=== PATIENT | male | born 1990 | race Caucasian/White ===

== ENCOUNTER 2017-05-03 12:32 | Emergency (ER) | payer OTHER ==
[~2017-05-03] VITALS: Ht 185.4 cm; Wt 60.8 kg
--- NOTE | 2017-05-03 12:37 | NUR ---
[id number]/[employer]: OK TO BOOK. TACHYCARDIA S/P SMOKING METH LAST NIGHT. GOWNED PT . PLACED ON MONITOR. AWAITING MD ORDER
--- NOTE | 2017-05-03 12:39 | NUR ---
DR BISHOP AT BEDSIDE FOR EVAL.
[2017-05-03] MEDS ORDERED: HALOPERIDOL LACTATE INJ 5 MG/ML VIAL ONE (12:43)
[2017-05-03] MEDS ORDERED: LORAZEPAM INJ 2 MG/ML VIAL ONE (12:44)
[2017-05-03] MEDS: IV NS 0.9% 1,000 ML BAG IV ONE (12:50)
[2017-05-03] MEDS: LORAZEPAM INJ 2 MG/ML VIAL IVP ONE (12:51)
[2017-05-03] MEDS: HALOPERIDOL LACTATE INJ 5 MG/ML VIAL IM ONE (12:53)
--- NOTE | 2017-05-03 12:55 | NUR ---
COMMERCIAL [employer] PORTFOLIO MANAGER AT BEDSIDE FOR BLOOD DRAW.
[2017-05-03 13:06] LABS: BASOPHILS # (AUTO) 0.5 /CMM (0.0-0.2); BASOPHILS % (AUTO) 4.9 % (0.0-2.0); HEMATOCRIT 44 % (39-51); HEMOGLOBIN 14.9 g/dL (13.5-17.5); LYMPHOCYTES # (AUTO) 2.9 /CMM (0.8-4.8); LYMPHOCYTES % (AUTO) 26.1 % (20.0-44.0); MEAN CORPUSCULAR HEMOGLOBIN 31 PG (26.0-33.0); MEAN CORPUSCULAR HGB CONC 34 g/dl (31.0-36.0); MEAN CORPUSCULAR VOLUME 93 fL (80-96); MONOCYTES # (AUTO) 0.6 /CMM (0.1-1.30); MONOCYTES % (AUTO) 5.9 % (2.0-12.0); NEUTROPHILS # (AUTO) 6.9 /CMM (1.8-8.9); NEUTROPHILS % (AUTO) 63.1 % (43.0-81.0); PLATELET COUNT (AUTO) 354 /CMM (150-450); RDW COEFFICIENT OF VARIATION 13.6 (11.5-15.0); RED BLOOD CELL COUNT(AUTO) 4.79 MIL/uL (4.5-6.0); WHITE BLOOD COUNT (AUTO) 10.9 K/uL (4.3-11.0)
[2017-05-03 13:07] LABS: APPEARANCE,URINE Slightly Cloudy (CLEAR); BILIRUBIN,URINE SMALL (NEGATIVE); BLOOD, URINE Negative Ery/uL (NEGATIVE); COLOR,URINE Yellow (YELLOW); KETONES,URINE 40 (NEGATIVE); LEUKOCYTE ESTERASE ,URINE Negative (NEGATIVE); NITRITE, URINE Negative (NEGATIVE); PROTEIN,URINE 30 mg/dl (NEGATIVE); UGLUCOSE Negative (NEGATIVE); UROBILINOGEN,URINE 0.2 EU/dL (0.2)
[2017-05-03 13:13] LABS: CARBON DIOXIDE 25 mmol/L (21-32); CHLORIDE 107 mmol/L (98-107); CREATININE 1.1 mg/dL (0.6-1.3); GLUCOSE 82 mg/dL (74-106); POTASSIUM 3.6 mmol/L (3.5-5.1); SODIUM SERUM 145 mmol/L (136-145); UREA NITROGEN, BLOOD 20 mg/dL (7-18)
[2017-05-03 13:19] LABS: ALANINE AMINOTRANSFERASE 32 U/L (12-78); ALBUMIN 4.5 g/dL (3.4-5.0); ALCOHOL, BLOOD < 3 mg/dL (0-0); ALKALINE PHOSPHATASE 68 U/L (46-116); ASPARTATE AMINOTRANSFERASE 31 U/L (15-37); BILIRUBIN,DIRECT 0.2 mg/dL (0.0-0.2); BILIRUBIN,TOTAL 0.9 mg/dL (0.2-1.0); SALICYLATE 0.6 mg/dL (2.8-20.0); TOTAL PROTEIN, SERUM 8.2 g/dL (6.4-8.2)
[2017-05-03 13:20] LABS: ACETAMINOPHEN < 10 ug/ml (10-30)
[2017-05-03 13:47] LABS: BACTERIA,URINE None seen /HPF (None Seen); HYALINE CASTS, URINE Few /LPF (None Seen); SQUAMOUS EPITHELIAL CELL,UR Few /HPF (None Seen)
--- NOTE | 2017-05-03 14:00 | NUR ---
MEDICALLY CLEARED FOR BOOKING. IVHL DISCONTINUED. D/C TO PD IN STABLE CONDITION.
[2017-05-03 14:01] VITALS: BP 108/64
== END 2017-05-03 14:02 ==
LOC: ER 12:33
DX: F29 Unspecified psychosis not due to a substance or known physiological condition (principal); F15.10 Other stimulant abuse, uncomplicated; Z88.8 Allergy status to other drugs, medicaments and biological substances
CPT/HCPCS: 36415; 80048-TC; 80076-TC; 80305; 81000-TC; 85025-TC; A4606; G0480; J1630; J2060; J7030; Z7610

== ENCOUNTER 2020-05-25 08:02 | Emergency (ER) | payer OTHER ==
[~2020-05-25] VITALS: Ht 185.4 cm; Wt 74.8 kg
--- NOTE | 2020-05-25 08:02 | NUR ---
PT BIBRA 839 AND [employer] FROM [facility] C/O SUICIDAL "PT TOOK ADDERALL AND CUT HIS LEFT WRIST" PT IS AAOX4, NOT IN RESPIRATORY DISTRESS, HOOKED TO ACCOUNT INSTALLATION SPECIALIST, KEPT RESTED AND COMFORTABLE. SITTER AT BEDSIDE FOR 1 TO 1. WILL CONTINUE TO MONITOR.
--- NOTE | 2020-05-25 08:10 | NUR ---
SEEN AND EXAMINED BY .
[2020-05-25] MEDS ORDERED: LIDOCAINE 0.5%-EPI 1:200,000 50 ML VIAL ONE (08:13)
--- NOTE | 2020-05-25 08:15 | NUR ---
Note bearone in EDM - 05/25/20 at 0817 by KACIE Patient [facility]ra [facility], +SI, took adderall unknown amount. Lac on the left wrist. On room air, breathing evenly and unlabored. Sitter at bedside for constant monitoring. [employer] will put patient on 5150 hold. Kept comfortable, will continue to monitor accordingly.
--- NOTE | 2020-05-25 08:19 | NUR ---
ER PHLEB AT BEDSIDE FOR BLOOD DRAW.
--- NOTE | 2020-05-25 08:21 | NUR ---
PT ON 5150 HOLD BY LASHAY.
--- NOTE | 2020-05-25 08:31 | NUR ---
Spoke to Richard at [facility]. Recommends 6hr observation and 25g charcoal
[2020-05-25 08:32] LABS: BASOPHILS % (AUTO) 0.4 % (0.0-2.0); EOSINOPHILS % (AUTO) 0.1 % (0.0-6.0); HEMATOCRIT 45 % (39-51); HEMOGLOBIN 15.2 g/dL (13.5-17.5); LYMPHOCYTES # (AUTO) 1.3 /CMM (0.8-4.8); LYMPHOCYTES % (AUTO) 12.7 % (20.0-44.0); MEAN CORPUSCULAR HGB CONC 34 g/dl (31.0-36.0); MEAN CORPUSCULAR VOLUME 95 fL (80-96); MONOCYTES # (AUTO) 0.8 /CMM (0.1-1.30); MONOCYTES % (AUTO) 8.1 % (2.0-12.0); NEUTROPHILS # (AUTO) 8.2 /CMM (1.8-8.9); NEUTROPHILS % (AUTO) 78.7 % (43.0-81.0); PLATELET COUNT (AUTO) 259 /CMM (150-450); RED BLOOD CELL COUNT(AUTO) 4.73 MIL/uL (4.5-6.0); WHITE BLOOD COUNT (AUTO) 10.4 K/uL (4.3-11.0)
[2020-05-25] MEDS ORDERED: ACTIVATED CHARCOAL 25 GM/120 ML TUBE PO ONE (09:00)
[2020-05-25] MEDS ORDERED: IV NS 0.9% 1,000 ML BAG IV ONE (09:00)
[2020-05-25 09:12] LABS: ALANINE AMINOTRANSFERASE 25 U/L (12-78); ALBUMIN 4.3 g/dL (3.4-5.0); ALCOHOL, BLOOD < 3 mg/dL (0-0); ALKALINE PHOSPHATASE 54 U/L (46-116); ASPARTATE AMINOTRANSFERASE 30 U/L (15-37); BILIRUBIN,DIRECT 0.3 mg/dL (0.0-0.2); BILIRUBIN,TOTAL 1.4 mg/dL (0.2-1.0); CALCIUM, SERUM 9.6 mg/dL (8.5-10.1); CARBON DIOXIDE 23 mmol/L (21-32); CHLORIDE 103 mmol/L (98-107); CREATININE 1.4 mg/dL (0.6-1.3); GLUCOSE 117 mg/dL (74-106); POTASSIUM 3.2 mmol/L (3.5-5.1); SODIUM SERUM 141 mmol/L (136-145); TOTAL PROTEIN, SERUM 7.6 g/dL (6.4-8.2); UREA NITROGEN, BLOOD 12 mg/dL (7-18)
[2020-05-25 09:13] LABS: ACETAMINOPHEN < 10 ug/ml (10-30)
[2020-05-25] MEDS ORDERED: TDAP [DIPH/PERTUSSIS/TET] 0.5 ML VIAL IM ONE ×2 (09:14→09:30)
[2020-05-25] MEDS ORDERED: BACITRACIN ZINC OINT PACKET 1 EA PACKET TP ONE (09:14)
[2020-05-25] MEDS ORDERED: ACTIVATED CHARCOAL 25 GM/120 ML TUBE ONE (09:14)
[2020-05-25] MEDS ORDERED: BACI/NEOM/POLY B OINT PKT 1 UDPKT PACKET ONE (09:16)
--- NOTE | 2020-05-25 09:20 | NUR ---
PER PT HE GOT TDAP SHOT LAST DEC 2019.
--- NOTE | 2020-05-25 09:23 | NUR ---
IV LINE ESTABLISHED G20 L AC.
[2020-05-25] MEDS ORDERED: NEOMY SULF/BACITRAC ZN/POLY 15 GM TUBE TP SCH (09:30)
[2020-05-25] MEDS ORDERED: LORAZEPAM INJ 2 MG/ML VIAL IV ONE (10:00)
[2020-05-25] MEDS ORDERED: LORAZEPAM INJ 2 MG/ML VIAL ONE (10:01)
--- NOTE | 2020-05-25 11:21 | NUR ---
COVID SPECIMEN OBTAINED AND SENT TO LAB.
[2020-05-25 11:28] LABS: BILIRUBIN,URINE SMALL (NEGATIVE); COLOR,URINE YELLOW (YELLOW); LEUKOCYTE ESTERASE ,URINE Negative (NEGATIVE); NITRITE, URINE Negative (NEGATIVE); PROTEIN,URINE Negative (NEGATIVE); UGLUCOSE Negative (NEGATIVE); UROBILINOGEN,URINE 0.2 EU/dL (0.2)
[2020-05-25 11:41] LABS: BACTERIA,URINE Rare /HPF (None Seen); RBC,URINE NONE SEEN /HPF (0-2); SQUAMOUS EPITHELIAL CELL,UR Few /HPF (None Seen); WBC,URINE NONE SEEN /HPF (0-3)
--- NOTE | 2020-05-25 12:12 | NUR ---
LAB CALLED HECTOR YO NEGATIVE (-)
--- NOTE | 2020-05-25 12:12 | NUR ---
Matteo mcintyre in [facility] - 05/25/20 at 1212 by KINGSLEY MOVE SHEET SUBMITTED AND CALLED FOR MS BED.
--- NOTE | 2020-05-25 14:21 | NUR ---
CALLED DEBBIE [phone] [facility].
--- NOTE | 2020-05-25 14:46 | NUR ---
FAXED CLINICALS TO [facility] [phone]
[2020-05-25] MEDS ORDERED: POTASSIUM CHLORIDE 20 MEQ TAB.PRT.SR PO ONE ×2 (15:00→15:27)
--- NOTE | 2020-05-25 15:11 | NUR ---
Accepted to: [facility] MD: [employer] [id number] #For Report: [phone]
--- NOTE | 2020-05-25 15:25 | NUR ---
REPORT GIVEN TO JESSICA INMAN OF [facility].
--- NOTE | 2020-05-25 15:35 | NUR ---
CALLED [facility] [phone] THEY ARE UNABLE TO TRANSPORT PT. PER REKHA
--- NOTE | 2020-05-25 15:48 | NUR ---
CALLED [facility] FOR TRANSPORT ETA IS 1700 PER ROSANA
[2020-05-25 16:58] VITALS: BP 131/78
--- NOTE | 2020-05-25 16:58 | NUR ---
REPORT GIVEN TO EMS FOR PT TRANSFER TO [facility].
== END 2020-05-25 16:59 ==
LOC: ER 08:06
DX: R00.0 Tachycardia, unspecified (principal); T43.622A Poisoning by amphetamines, intentional self-harm, initial encounter; Y92.89 Other specified places as the place of occurrence of the external cause; S51.812A Laceration without foreign body of left forearm, initial encounter; S61.512A Laceration without foreign body of left wrist, initial encounter; X78.9XXA Intentional self-harm by unspecified sharp object, initial encounter; Y93.89 Activity, other specified; Z59.0 Homelessness; F32.9 Major depressive disorder, single episode, unspecified; R94.31 Abnormal electrocardiogram [ECG] [EKG]; Z20.822 Contact with and (suspected) exposure to COVID-19; Z82.49 Family history of ischemic heart disease and other diseases of the circulatory system
CPT/HCPCS: 12004; 36415; 80048; 80076; 80299; 80307; 80320; 81001; 82550; 82553; 84484; 85025; 87426; 93005; 96361; 96374; 99291; A6403; C9803; J2060; J3490; J7030; 90715; G0480